=== PATIENT | male | born 1995 | race Caucasian/White ===

== ENCOUNTER 2023-06-13 22:32 | Emergency (ER) | payer OTHER ==
[~2023-06-13] VITALS: Ht 185.4 cm; Wt 87.0 kg
[2023-06-13 22:33] VITALS: BP 113/70; TEMP 98; O2SAT 98
== END 2023-06-14 01:40 | disposition left against medical advice (07) ==
LOC: M ED 22:32
DX: Z53.21 Procedure and treatment not carried out due to patient leaving prior to being seen by health care provider (principal)